=== PATIENT | male | born 1990 | race Caucasian/White ===

== ENCOUNTER 2019-08-15 03:15 | Emergency (ER) | payer OTHER ==
[~2019-08-15] VITALS: Ht 167.6 cm; Wt 114.3 kg
[2019-08-15 03:29] VITALS: Ht 167.6 cm; Wt 114.3 kg
[2019-08-15 05:38] VITALS: BP 105/69
== END 2019-08-15 05:38 | disposition home or self-care (01) ==
LOC: ED 03:15
DX: L03.115 Cellulitis of right lower limb (principal)

== ENCOUNTER 2019-08-19 18:20 | Emergency (ER) | payer OTHER ==
[~2019-08-19] VITALS: Ht 175.3 cm; Wt 115.2 kg
[2019-08-19 18:32] VITALS: Ht 175.3 cm; Wt 115.2 kg
[2019-08-19 20:44] LABS: BASOPHIL % 0.6 % (0-2); PLATELET COUNT 280 x10^3mcL (130-400)
[2019-08-19 20:46] LABS: CARBON DIOXIDE 25.5 mmol/L (21-32); CHLORIDE SERUM 103 mmol/L (98-107); CREATININE SERUM 0.9 mg/dL (0.7-1.3); GFR1 > 60 mL/min; GLUCOSE SERUM 96 mg/dL (74-106); POTASSIUM SERUM 3.9 mmol/L (3.5-5.1); SODIUM SERUM 139 mmol/L (136-145)
[2019-08-19 20:49] LABS: ALBUMIN 4.2 g/dL (3.4-5.0); ALKALINE PHOSPHATASE 71 U/L (46-116); ALT/SGPT 55 U/L (16-63); AST/SGOT 23 U/L (15-37); BILIRUBIN TOTAL 0.4 mg/dL (0.20-1.00); LIPASE 109 IU/L (73-393); TOTAL PROTEIN, SERUM 8.2 g/dL (6.4-8.2)
[2019-08-19 21:54] VITALS: BP 127/81
== END 2019-08-19 21:54 | disposition home or self-care (01) ==
LOC: ED 18:20
PROVIDERS: Emergency Medicine
DX: K29.70 Gastritis, unspecified, without bleeding (principal)
CPT/HCPCS: 36415; 82962

== ENCOUNTER 2019-08-21 09:07 | Emergency (ER) | payer OTHER ==
[~2019-08-21] VITALS: Ht 175.3 cm; Wt 113.4 kg
[2019-08-21 10:00] VITALS: BP 130/75
== END 2019-08-21 10:00 | disposition home or self-care (01) ==
LOC: ED 09:07
DX: B96.81 Helicobacter pylori [H. pylori] as the cause of diseases classified elsewhere (principal); K29.70 Gastritis, unspecified, without bleeding
CPT/HCPCS: Q0092

== ENCOUNTER 2019-08-31 04:55 | Emergency (ER) | payer OTHER ==
[~2019-08-31] VITALS: Ht 175.3 cm; Wt 112.5 kg
[2019-08-31 05:05] VITALS: BP 148/91; Ht 175.3 cm; Wt 112.5 kg
[2019-08-31 08:31] LABS: ALBUMIN 3.9 g/dL (3.4-5.0); ALKALINE PHOSPHATASE 68 U/L (46-116); ALT/SGPT 65 U/L (16-63); AST/SGOT 25 U/L (15-37); CARBON DIOXIDE 24.7 mmol/L (21-32); CHLORIDE SERUM 106 mmol/L (98-107); CREATININE SERUM 0.8 mg/dL (0.7-1.3); GFR1 > 60 mL/min; GLUCOSE SERUM 97 mg/dL (74-106); LIPASE 88 IU/L (73-393); POTASSIUM SERUM 3.3 mmol/L (3.5-5.1); SODIUM SERUM 141 mmol/L (136-145); TOTAL PROTEIN, SERUM 7.4 g/dL (6.4-8.2)
[2019-08-31 08:35] LABS: BASOPHIL % 0.4 % (0-2); PLATELET COUNT 206 x10^3mcL (130-400); RED CELL DISTRIBUTION WIDTH 14.4 % (11.5-14.5)
[2019-08-31 08:36] LABS: CALCIUM 8.9 mg/dL (8.5-10.1)
== END 2019-08-31 09:14 | disposition home or self-care (01) ==
LOC: ED 04:55
PROVIDERS: Emergency Medicine
DX: K29.70 Gastritis, unspecified, without bleeding (principal); B96.81 Helicobacter pylori [H. pylori] as the cause of diseases classified elsewhere; J45.909 Unspecified asthma, uncomplicated
CPT/HCPCS: Q0092

== ENCOUNTER 2019-09-19 06:14 | Emergency (ER) | payer OTHER ==
[~2019-09-19] VITALS: Ht 175.3 cm; Wt 111.1 kg
[2019-09-19 06:27] VITALS: Ht 175.3 cm; Wt 111.1 kg
[2019-09-19 08:17] LABS: microscopic required? NO
[2019-09-19 08:42] LABS: UA SPECIFIC GRAVITY <=1.005 (1.005-1.035); urine erythrocyte NEGATIVE (NEGATIVE)
[2019-09-19 08:45] LABS: CALCIUM 9.1 mg/dL (8.5-10.1); CARBON DIOXIDE 28.4 mmol/L (21-32); CHLORIDE SERUM 102 mmol/L (98-107); CREATININE SERUM 0.8 mg/dL (0.7-1.3); GFR1 > 60 mL/min; GLUCOSE SERUM 105 mg/dL (74-106); POTASSIUM SERUM 3.7 mmol/L (3.5-5.1); SODIUM SERUM 139 mmol/L (136-145)
[2019-09-19 08:50] LABS: ALKALINE PHOSPHATASE 89 U/L (46-116); ALT/SGPT 154 U/L (16-63); AST/SGOT 35 U/L (15-37); BILIRUBIN TOTAL 0.58 mg/dL (0.20-1.00); LIPASE 87 IU/L (73-393)
[2019-09-19 09:04] LABS: BASOPHIL % 0.4 % (0-2); PLATELET COUNT 226 x10^3mcL (130-400); RED CELL DISTRIBUTION WIDTH 14.2 % (11.5-14.5)
[2019-09-19 10:36] VITALS: BP 122/81
== END 2019-09-19 10:36 | disposition home or self-care (01) ==
LOC: ED 06:14
PROVIDERS: Emergency Medicine
DX: K62.89 Other specified diseases of anus and rectum (principal); J45.909 Unspecified asthma, uncomplicated

== ENCOUNTER 2019-10-05 01:53 | Emergency (ER) | payer OTHER ==
[2019-10-05 02:00] VITALS: Ht 175.3 cm
[2019-10-05 03:00] VITALS: BP 115/71
== END 2019-10-05 02:55 | disposition home or self-care (01) ==
LOC: ED 01:53
DX: K64.8 Other hemorrhoids (principal); K59.00 Constipation, unspecified; N48.1 Balanitis; J45.909 Unspecified asthma, uncomplicated
CPT/HCPCS: 82962; Q0092